=== PATIENT | male | born 1960 | race Caucasian/White ===

== ENCOUNTER 2022-07-18 10:33 | Outpatient (CLI) | payer BC, SELFPAY ==
--- NOTE | 2022-07-18 10:45 | CRLHL7_ITS ---
For Patients: As a result of the Century Cures Act, medical imaging exams and procedure reports are released immediately into your electronic medical record. You may view this report before your referring provider. If you have questions, please contact your health care provider. CLINICAL HISTORY: URINARY FREQUENCY COMPARISON: none TECHNIQUE: Stahl scale and color Doppler images were acquired of the urinary bladder. FINDINGS: Prevoid bladder volume 293 cc. Bladder wall measures 2.7 millimeters. Postvoid bladder volume 59 cc. IMPRESSION: Postvoid residual bladder volume of 20 percent. Dictated by Gabriel Martinez MD @ 07/18/2022 11:21:53 AM (Electronically Signed)
== END 2022-07-18 10:34 | disposition home or self-care (01) ==
LOC: US 10:35
PROVIDERS: PCP Family Medicine; Visit Provider Emergency Medicine
DX: R35.0 Frequency of micturition (principal)
CPT/HCPCS: 76857

== ENCOUNTER 2023-07-16 10:02 | Outpatient (CLI) | payer BC, SELFPAY | END 2023-07-16 10:03 | disposition home or self-care (01) | PROVIDERS: PCP Family Medicine; Visit Provider Family Medicine | DX: E78.00 Pure hypercholesterolemia, unspecified (principal); I10 Essential (primary) hypertension; R73.03 Prediabetes; Z12.5 Encounter for screening for malignant neoplasm of prostate | CPT/HCPCS: 80053; 80061; G0103 ==

== ENCOUNTER 2023-08-24 06:20 | Outpatient (CLI) | payer BC, SELFPAY ==
--- NOTE | 2023-08-24 07:49 | W.ANESCHARGE ---
Anesthesia Charges Start Date/Time Anesthesia Start Date: 08/24/23 Anesthesia Start Time: 07:15 Stop Date/Time Anesthesia Stop Date: 08/24/23 Anesthesia Stop Time: 07:46
== END 2023-08-24 06:21 | disposition home or self-care (01) ==
LOC: OP CLINIC 06:21
PROVIDERS: PCP Family Medicine; Visit Provider Internal Medicine
DX: Z12.11 Encounter for screening for malignant neoplasm of colon (principal)
CPT/HCPCS: 00812; 45378; J2704